=== PATIENT | male | born 1985 | race Caucasian/White ===

== ENCOUNTER 2020-04-17 16:48 | Emergency (ER) | payer OTHER ==
[~2020-04-17] VITALS: Ht 185 cm; Wt 99.7 kg
[2020-04-17] MEDS ORDERED: ONDANSETRON 4 MG/2 ML (SDV) Z0FRAN ONE (17:00)
[2020-04-17] MEDS ORDERED: LACTATED RINGERS 1,000 ML IV ONE ×2 (17:00→18:20)
[2020-04-17] MEDS ORDERED: HYOSCYAMINE 0.125 MG (LEVSIN) TAB ONE (17:01)
[2020-04-17] MEDS ORDERED: LACTATED RINGERS 1,000 ML IV STA (17:01)
[2020-04-17] MEDS ORDERED: HYOSCYAMINE 0.125 MG (LEVSIN) TAB SL ONE (17:15)
[2020-04-17] MEDS ORDERED: ONDANSETRON 4 MG/2 ML (SDV) Z0FRAN IVP ONE ×2 (17:15→20:15)
--- NOTE | 2020-04-17 17:19 | ED GI ---
General Chief Complaint: Abdominal/GI Problems Stated Complaint: STOMACH PAIN Nursing Triage Note: pt presents to ed with complaints of abdominal pain and cramping, v/d, and cold sweats since last night. Sepsis Screen: Possible Sepsis Risk Source of Information: Patient, Family Exam Limitations: No Limitations (MIRANDA TIDWELL MD) History of Present Illness Date Seen by Provider: Apr 17, 2020 Time Seen by Provider: 16:55 Initial Comments Here with report of abdominal pain and cramping associated with intermittent vomiting and diarrhea. Also has been diaphoretic. Has had low-grade fever in the 99 5-99 9 range. No specific contact with COVID-19. Onset after celebrating birthday green party yesterday and eating food. He ate the same food that everybody else had no one else is sick. Denies specific cough, sore throat, runny nose or shortness of breath. Timing/Duration: 12-24 Hours Severity/Quality: Moderate, Severe, Cramping Location: Generalized Abdomen Radiation: No Radiation Activities at Onset: None Modifying Factors: Improves With Defecating; Worsens With Eating Associated Symptoms: No Chest Pain; Diaphoresis, Fever/Chills, Fatigue, Nausea/Vomiting; No Shortness of Air, No Swelling/Mass in Abdomen; Weakness (MIRANDA TIDWELL MD) Allergies and Home Medications Allergies Coded Allergies: Penicillins (Verified Allergy, Unknown, 04/17/20) Home Medications Ciprofloxacin HCl 500 Mg Tablet, 500 MG PO BID Prescribed by: MEI MARTIN on 04/17/202009 Hyoscyamine Sulfate 0.125 Mg Tab.subl, 0.125 MG SL Q4H Prescribed by: MEI MARTIN on 04/17/202009 Metronidazole 500 Mg Tablet, 500 MG PO BID Prescribed by: MEI MARTIN on 04/17/202009 Ondansetron 4 Mg Tab.rapdis, 4 MG PO Q6H PRN for NAUSEA/VOMITING Prescribed by: MEI MARTIN on 04/17/202009 Patient Home Medication List Home Medication List Reviewed: Yes (MIRANDA TIDWELL MD) Review of Systems Review of Systems Constitutional: see HPI EENTM: No Symptoms Reported Respiratory: Denies Cough, Denies Shortness of Air Cardiovascular: No Symptoms Reported Gastrointestinal: See HPI Genitourinary: Denies Pain Musculoskeletal: no symptoms reported (MIRANDA TIDWELL MD) All Other Systems Reviewed Negative Unless Noted: Yes (MIRANDA TIDWELL MD) Past Oqdqmzi-Sipwlc-Ehsgbq Hx Past Med/Social Hx: Reviewed Nursing Past Med/Soc Hx (MIRANDA TIDWELL MD) Patient Social History Alcohol Use: Occasionally Uses Recreational Drug Use: No Smoking Status: Never a Smoker 2nd Hand Smoke Exposure: No Recent Foreign Travel: No Contact w/Someone Who Travel: No Recent Infectious Disease Expo: No Recent Hopitalizations: No (MIRANDA TIDWELL MD) Seasonal Allergies Seasonal Allergies: No (MIRANDA TIDWELL MD) Past Medical History Surgeries: Yes Appendectomy Respiratory: No Cardiac: No Neurological: No Genitourinary: No Gastrointestinal: No Musculoskeletal: No Endocrine: No HEENT: No Cancer: No Psychosocial: No Integumentary: No Adverse Reaction/Blood Tranf: No (MIRANDA TIDWELL MD) Family Medical History Reviewed Nursing Family Hx (MIRANDA TIDWELL MD) Physical Exam Vital Signs Vital Signs - First Documented 04/17/20 16:50 Temp 38.0 Pulse 96 Resp 20 B/P (MAP) 123/75 (91) Pulse Ox 96 (MARTIN,MEI L DO) Vital Signs Capillary Refill : Less Than 3 Seconds (MIRANDA TIDWELL MD) Height/Weight/BMI Height: '" Weight: lbs. oz. kg; 29.00 BMI Method: General Appearance: WD/WN, no apparent distress HEENT: PERRL/EOMI, pharynx normal Neck: full range of motion, supple Respiratory: lungs clear, normal breath sounds Cardiovascular: no murmur, tachycardia Peripheral Pulses: 2+ Dorsalis Pedis (R), 2+ Left Dors-Pedis (L), 2+ Radial Pulses (R), 2+ Radial Pulses (L) Gastrointestinal: soft, tenderness (diffuse) Extremities: non-tender, normal inspection Back: normal inspection, no CVA tenderness, no vertebral tenderness Neurologic/Psychiatric: alert, oriented x 3 Skin: normal color, warm/dry (MIRANDA TIDWELL MD) Progress/Results/Core Measures Results/Orders Lab Results Laboratory Tests Test 04/17/20 17:22 04/17/20 18:37 Range/Units White Blood Count 8.7 4.3-11.0 10^3/uL Red Blood Count 4.52 4.35-5.85 10^6/uL Hemoglobin 13.9 13.3-17.7 G/DL Hematocrit 39 L 40-54 % Mean Corpuscular Volume 87 80-99 FL Mean Corpuscular Hemoglobin 31 25-34 PG Mean Corpuscular Hemoglobin Concent 35 32-36 G/DL Red Cell Distribution Width 12.8 10.0-14.5 % Platelet Count 172 130-400 10^3/uL Mean Platelet Volume 10.8 H 7.4-10.4 FL Neutrophils (%) (Auto) 85 H 42-75 % Lymphocytes (%) (Auto) 10 L 12-44 % Monocytes (%) (Auto) 6 0-12 % Eosinophils (%) (Auto) 0 0-10 % Basophils (%) (Auto) 0 0-10 % Neutrophils # (Auto) 7.3 1.8-7.8 X 10^3 Lymphocytes # (Auto) 0.8 L 1.0-4.0 X 10^3 Monocytes # (Auto) 0.5 0.0-1.0 X 10^3 Eosinophils # (Auto) 0.0 0.0-0.3 10^3/uL Basophils # (Auto) 0.0 0.0-0.1 10^3/uL Erythrocyte Sedimentation Rate 17 H 0-15 MM/HR D-Dimer 1.49 H 0.00-0.49 UG/ML Sodium Level 135 135-145 MMOL/L Potassium Level 3.4 L 3.6-5.0 MMOL/L Chloride Level 101 98-107 MMOL/L Carbon Dioxide Level 23 21-32 MMOL/L Anion Gap 11 5-14 MMOL/L Blood Urea Nitrogen 17 7-18 MG/DL Creatinine 1.38 H 0.60-1.30 MG/DL Estimat Glomerular Filtration Rate 59 BUN/Creatinine Ratio 12 Glucose Level 119 H 70-105 MG/DL Calcium Level 8.8 8.5-10.1 MG/DL Corrected Calcium 8.7 8.5-10.1 MG/DL Magnesium Level 1.8 1.6-2.4 MG/DL Total Bilirubin 1.2 H 0.1-1.0 MG/DL Aspartate Amino Transf (AST/SGOT) 24 5-34 U/L Alanine Aminotransferase (ALT/SGPT) 27 0-55 U/L Alkaline Phosphatase 70 40-136 U/L Lactate Dehydrogenase 190 125-220 U/L C-Reactive Protein High Sensitivity 27.99 H 0.00-0.50 MG/DL Total Protein 7.1 6.4-8.2 GM/DL Albumin 4.1 3.2-4.5 GM/DL Procalcitonin 1.02 H <0.10 NG/ML Coronavirus 2019 (KENISHA) Negative Negative Urine Color YELLOW Urine Clarity CLEAR Urine pH 6.5 5-9 Urine Specific [place] 1.010 L 1.016-1.022 Urine Protein NEGATIVE NEGATIVE Urine Glucose (UA) NEGATIVE NEGATIVE Urine Ketones NEGATIVE NEGATIVE Urine Nitrite NEGATIVE NEGATIVE Urine Bilirubin NEGATIVE NEGATIVE Urine Urobilinogen 0.2 < = 1.0 MG/DL Urine Leukocyte Esterase NEGATIVE NEGATIVE Urine RBC (Auto) NEGATIVE NEGATIVE Urine RBC NONE /HPF Urine WBC NONE /HPF Urine Squamous Epithelial Cells NONE /HPF Urine Crystals NONE /LPF Urine Bacteria NEGATIVE /HPF Urine Casts PRESENT /LPF Urine Hyaline Casts 0-2 H /LPF Urine Mucus NEGATIVE /LPF Urine Culture Indicated NO (MEI MARTIN DO) My Orders Orders - MEI MARTIN DO Ed Iv/Invasive Line Start (04/17/20 18:20) Lactated Ringers (Lr 1000 Ml Iv Solution (04/17/20 18:20) Fentanyl Injection (Sublimaze Injection (04/17/20 18:25) Promethazine Injection (Phenergan Injec (04/17/20 18:25) Ct Abdomen/Pelvis W (04/17/20 18:47) Iohexol Injection (Omnipaque 350 Mg/Ml 1 (04/17/20 19:30) Received Contrast (Hold Metformin- Contr (04/17/20 19:30) Sodium Chloride Flush (Catheter Flush Sy (04/17/20 19:30) Ns (Ivpb) (Sodium Chloride 0.9% Ivpb Bag (04/17/20 19:30) Levofloxacin Tablet (Levaquin Tablet) (04/17/20 19:46) Metronidazole Tablet (Flagyl Tablet) (04/17/20 19:46) Ondansetron Injection (Zofran Injectio (04/17/20 20:15) (MEI MARTIN DO) Medications Given in ED Current Medications Medications Dose Ordered Sig/Sadia Route Start Time Stop Time Status Last Admin Dose Admin Hyoscyamine Sulfate 0.125 mg ONCE ONCE SL 04/17/20 17:15 04/17/20 17:16 DC 04/17/20 17:18 0.125 MG Iohexol 100 ml ONCE ONCE IV 04/17/20 19:30 04/17/20 19:31 UNV 04/17/20 19:22 100 ML Lactated Ringer's 1,000 ml @ 0 mls/hr Q0M ONCE IV 04/17/20 18:20 04/17/20 18:22 DC 04/17/20 18:32 0 MLS/HR Ondansetron HCl 4 mg ONCE ONCE IVP 04/17/20 17:15 04/17/20 17:16 DC 04/17/20 17:18 4 MG Sodium Chloride 10 ml NEEDED PRN IV 04/17/20 19:30 UNV 04/17/20 19:22 10 ML Sodium Chloride 100 ml ONCE ONCE IV 04/17/20 19:30 04/17/20 19:31 UNV 04/17/20 19:22 80 ML (MEI MARTIN DO) Vital Signs/I&O 04/17/20 16:50 Temp 38.0 Pulse 96 Resp 20 B/P (MAP) 123/75 (91) Pulse Ox 96 (MEI MARTIN DO) Blood Pressure Mean: 91 Progress Progress Note : Progress Note Seen and evaluated. IV, labs, LR 1 L bolus, Zofran 4 mg IV and Levsin 0.125 mg by mouth sublingual. Due to presenting symptoms and current pandemic, COVID-19 rapid test ordered. Monitor patient. (MIRANDA TIDWELL MD) Progress Note : Time: 20:04 Progress Note I assumed care from Dr. Tidwell. Patient was given an additional 1 L bolus of LR. CT of abdomen was obtained that showed a colitis/enteritis. I will start him on Cipro Flagyl. He will also be discharged with Levsin and Zofran. Patient is stable and will be discharged home. (MEI MARTIN DO) Diagnostic Imaging Diagonstic Imaging: CT Plain Films/CT/US/NM/MRI: abdomen Comments [facility]. [place], [place] NAME: JULI STOKESPORTIA Atkinson [facility] REC#: [id number] PT STATUS: REG ER : 1985 PHYSICIAN: MEI MARTIN DO ADMIT DATE: 04/17/20/ER Signed Date of Exam:04/17/20 CT ABDOMEN/PELVIS W INDICATION: Abdominal pain and cramping, vomiting and diarrhea. Cold sweats since last night. Prior appendectomy. EXAMINATION: CT abdomen and pelvis with contrast, 04/17/2020. All CT scans use one or more of the following dose optimizing techniques: automated exposure control, MA and/or KvP adjustment based on patient size and exam type or iterative reconstruction. COMPARISON: None. FINDINGS: Lung bases are clear. Liver demonstrates a few calcified granulomata but otherwise normal. Calcified granulomata noted within the spleen. The adrenal glands and pancreas are normal. Gallbladder is unremarkable. Kidneys are unremarkable. Diffuse abnormal appearance to the large bowel is noted with wall thickening involving the entire colon and mild adjacent fat stranding also present. No obstructive process. No free fluid or air. A few small bowel loops within the midabdomen also abnormal in appearance suggesting an enteritis. The osseous structures appear unremarkable. IMPRESSION: Abnormal appearing loops of bowel, especially involving the colon, suggesting colitis and likely enteritis. Remaining structures unremarkable. (MEI MARTIN DO) Departure Impression Primary Impression: Colitis Additional Impression: Enteritis Disposition: 01 HOME, SELF-CARE Condition: Stable Departure-Patient Inst. Patient Instructions: Colitis (DC), [id number] Scripts Ondansetron (Ondansetron Odt) 4 Mg Tab.rapdis 4 MG PO Q6H PRN for NAUSEA/VOMITING, #20 TAB 0 Refills Prov: MEI MARTIN DO 04/17/20 Metronidazole (Flagyl) 500 Mg Tablet 500 MG PO BID, #14 TAB Prov: MEI MARTIN DO 04/17/20 Hyoscyamine Sulfate (Levsin-Sl) 0.125 Mg Tab.subl 0.125 MG SL Q4H, #10 TAB 0 Refills Prov: MEI MARTIN DO 04/17/20 Ciprofloxacin HCl (Ciprofloxacin HCl) 500 Mg Tablet 500 MG PO BID, #14 TAB Prov: MEI MARTIN DO 04/17/20 MIRANDA TIDWELL MD Apr 17, 2020 17:18 MEI MARTIN DO Apr 17, 2020 20:09
[2020-04-17 17:44] LABS: BASOPHILS % (AUTO) 0 % (0-10); EOSINOPHILS % (AUTO) 0 % (0-10); HEMATOCRIT 39 % (40-54); HEMOGLOBIN 13.9 G/DL (13.3-17.7); LYMPHOCYTES # (AUTO) 0.8 X 10^3 (1.0-4.0); LYMPHOCYTES % (AUTO) 10 % (12-44); MEAN CORPUSCULAR HEMOGLOBIN 31 PG (25-34); MEAN CORPUSCULAR HGB CONC 35 G/DL (32-36); MEAN CORPUSCULAR VOLUME 87 FL (80-99); MEAN PLATELET VOLUME 10.8 FL (7.4-10.4); MONOCYTES # (AUTO) 0.5 X 10^3 (0.0-1.0); MONOCYTES % (AUTO) 6 % (0-12); NEUTROPHILS # (AUTO) 7.3 X 10^3 (1.8-7.8); NEUTROPHILS % (AUTO) 85 % (42-75); PLATELET COUNT 172 10^3/uL (130-400); WHITE BLOOD COUNT 8.7 10^3/uL (4.3-11.0)
[2020-04-17 17:54] LABS: ALBUMIN 4.1 GM/DL (3.2-4.5); POTASSIUM 3.4 MMOL/L (3.6-5.0)
[2020-04-17 17:55] LABS: CALCIUM 8.8 MG/DL (8.5-10.1)
[2020-04-17 17:57] LABS: TOTAL PROTEIN 7.1 GM/DL (6.4-8.2)
[2020-04-17 17:58] LABS: BILIRUBIN,TOTAL 1.2 MG/DL (0.1-1.0)
[2020-04-17 18:00] LABS: CREATININE SERUM 1.38 MG/DL (0.60-1.30)
[2020-04-17 18:03] LABS: MAGNESIUM 1.8 MG/DL (1.6-2.4)
[2020-04-17] MEDS ORDERED: PROMETHAZINE INJ 25 MG/ML (PHENERGAN) AMP IVP STA (18:25)
[2020-04-17] MEDS ORDERED: fentaNYL INJECTION 100 MCG/2 ML AMP IVP STA (18:25)
[2020-04-17 18:43] LABS: ERYTHROCYTE SEDIMENTATION RATE 17 MM/HR (0-15)
[2020-04-17 18:51] LABS: BILIRUBIN,URINE NEGATIVE (NEGATIVE); CLARITY,URINE CLEAR; COLOR,URINE YELLOW; GLUCOSE, URINE (UA) NEGATIVE (NEGATIVE); KETONES,URINE NEGATIVE (NEGATIVE); LEUKOCYTE ESTERASE ,URINE NEGATIVE (NEGATIVE); NITRITE,URINE NEGATIVE (NEGATIVE); PH,URINE 6.5 (5-9); PROTEIN,URINE NEGATIVE (NEGATIVE)
[2020-04-17 18:58] LABS: BACTERIA,URINE NEGATIVE /HPF; HYALINE CASTS, URINE 0-2 /LPF
[2020-04-17] MEDS ORDERED: IOHEXOL 350 MG/ML 100 ML (OMNIPAQUE 350) VIAL IV ONE (19:30)
[2020-04-17] MEDS ORDERED: HOLD METFORMIN - RECEIVED CONTRAST 20 ML VIAL IV SCH (19:30)
[2020-04-17] MEDS ORDERED: NS 100 ML (IVPB) BAG IV ONE (19:30)
[2020-04-17] MEDS ORDERED: CATHETER FLUSH 10 ML SYR IV PRN (19:30)
--- NOTE | 2020-04-17 19:35 | Diagnostic Imaging Report ---
INDICATION: Abdominal pain and cramping, vomiting and diarrhea. Cold sweats since last night. Prior appendectomy. EXAMINATION: CT abdomen and pelvis with contrast, 04/17/2020. All CT scans use one or more of the following dose optimizing techniques: automated exposure control, MA and/or KvP adjustment based on patient size and exam type or iterative reconstruction. COMPARISON: None. FINDINGS: Lung bases are clear. Liver demonstrates a few calcified granulomata but otherwise normal. Calcified granulomata noted within the spleen. The adrenal glands and pancreas are normal. Gallbladder is unremarkable. Kidneys are unremarkable. Diffuse abnormal appearance to the large bowel is noted with wall thickening involving the entire colon and mild adjacent fat stranding also present. No obstructive process. No free fluid or air. A few small bowel loops within the midabdomen also abnormal in appearance suggesting an enteritis. The osseous structures appear unremarkable. IMPRESSION: Abnormal appearing loops of bowel, especially involving the colon, suggesting colitis and likely enteritis. Remaining structures unremarkable. Dictated by: Dictated on workstation # [id number]
[2020-04-17] MEDS ORDERED: metroNIDAZOLE 500 MG (FLAGYL) TAB PO STA (19:46)
[2020-04-17] MEDS ORDERED: LEVOFLOXACIN 500 MG TAB (LEVAQUIN) PO STA (19:46)
[2020-04-17] MEDS ORDERED: METR500T PO ×2 (20:10→20:18)
[2020-04-17] MEDS ORDERED: CIPR500T4 PO ×2 (20:10→20:18)
[2020-04-17] MEDS ORDERED: ONDA4TAB11 PO ×2 (20:10→20:18)
[2020-04-17] MEDS ORDERED: HYOS0.1283 SL ×2 (20:10→20:18)
[2020-04-17] MEDS ORDERED: fentaNYL INJECTION 100 MCG/2 ML AMP IVP ONE (20:30)
[2020-04-17 20:33] VITALS: BP 123/75
== END 2020-04-17 20:33 | disposition home or self-care (01) ==
LOC: EDUNIT# 16:48 → ER 16:51
DX: K52.9 Noninfective gastroenteritis and colitis, unspecified (principal); Z88.0 Allergy status to penicillin; Z20.828 Contact with and (suspected) exposure to other viral communicable diseases
CPT/HCPCS: 74177; 80053; 81000; 83615; 83735; 84145; 85025; 85379; 85652; 86141; 99284; U0002; 36415; 87635

== ENCOUNTER → 2020-06-15 | Outpatient (CLI) | payer OTHER ==
[~2020-06-15] MED LIST: CIPR500T4 PO; HYOS0.1283 SL; METR500T PO; ONDA4TAB11 PO
== END ==
LOC: LABNPT 09:12
PROVIDERS: ATTEND Emergency Medicine
DX: J02.9 Acute pharyngitis, unspecified (principal); R51.9 Headache, unspecified

== ENCOUNTER → 2020-06-15 | Outpatient (CLI) | payer OTHER | LOC: LAB 09:00 | PROVIDERS: ATTEND Emergency Medicine | DX: J02.9 Acute pharyngitis, unspecified (principal); R51.9 Headache, unspecified; Z20.828 Contact with and (suspected) exposure to other viral communicable diseases | CPT/HCPCS: 87635 ==

== ENCOUNTER 2020-06-24 05:41 | Outpatient (RCR) | payer OTHER ==
[~2020-06-24 05:41] MED LIST changes: +ATOR10TA66 PO
== END 2020-06-24 14:43 | disposition home or self-care (01) ==
LOC: PREOP 05:41
PROVIDERS: ATTEND Surgery
DX: Z01.812 Encounter for preprocedural laboratory examination (principal); K92.1 Melena; Z87.19 Personal history of other diseases of the digestive system; Z20.828 Contact with and (suspected) exposure to other viral communicable diseases
CPT/HCPCS: 87635

== ENCOUNTER 2020-06-28 09:58 | Day surgery (SDC) | payer OTHER ==
[2020-06-28] VITALS (7 sets, daily range): BP systolic 107–122; BP diastolic 67–85
[~2020-06-28] VITALS: Ht 185.5 cm; Wt 91.0 kg
[2020-06-28] MEDS ORDERED: LACTATED RINGERS 1,000 ML IV STA (10:25)
[2020-06-28] MEDS ORDERED: LACTATED RINGERS 1,000 ML IV ONE (10:27)
--- NOTE | 2020-06-28 11:20 | Progress Note-Pre Operative ---
Pre-Operative Progress Note H&P Reviewed The H&P was reviewed, patient examined and no changes noted. Date Seen by Provider: Jun 28, 2020 Time Seen by Provider: 11:19 Date H&P Reviewed: Jun 28, 2020 Time H&P Reviewed: 11:19 Pre-Operative Diagnosis: blood in stools, abnormal ct ELIAS DISLA DO Jun 28, 2020 11:20
[2020-06-28] MEDS ORDERED: proPOfol 200 MG/20 ML (DIPRIVAN) VIAL IV ONE ×2 (11:22→11:58)
[2020-06-28] MEDS ORDERED: MIDAZOLAM 2 MG/2 ML (VERSED) VIAL ONE (11:23)
--- NOTE | 2020-06-28 12:03 | Progress Note-Post Operative ---
Post-Operative Progess Note Surgeon (s)/Information Assurance (s) Surgeon ELIAS DISLA DO Information Assurance: na Pre-Operative Diagnosis blood in stools, abnormal ct Post-Operative Diagnosis rectal polyp, rectal inflammation, slight mucosal change ileum Procedure & Operative Findings Date of Procedure 06/28/20 Procedure Performed/Findings colonoscopy c cold biopsy ileum and rectal inflammation, cold polypectomy rectum Anesthesia Type per dairy farm manager Estimated Blood Loss Estimated blood loss (mL): none Specimens/Packing Specimens Removed ileum, rectal polyp, rectal inflammation ELIAS DISLA DO Jun 28, 2020 12:03
--- NOTE | 2020-06-28 13:14 | Anesthesia-General Post-Op ---
MAC Patient Condition Mental Status/LOC: Same as Preop Cardiovascular: Satisfactory Nausea/Vomiting: Absent Respiratory: Satisfactory Pain: Controlled Complications: Absent Post Op Complications Complications None Follow Up Care/Instructions Patient Instructions None needed. Anesthesiology Discharge Order Discharge Order Patient is doing well, no complaints, stable vital signs, no apparent adverse anesthesia problems. No complications reported per nursing. CARMEN SAENZ CRNA Jun 28, 2020 13:14
--- NOTE | 2020-06-29 14:14 | OPERATIVE REPORT ---
DATE OF SERVICE: 06/28/2020 PREOPERATIVE DIAGNOSES: Blood in stool, abnormal CT scan. POSTOPERATIVE DIAGNOSES: Rectal polyp, rectal inflammation, slight mucosal change of the ileum. SURGEON: Elias Covarrubias DO ANESTHESIA: Per FRANCHISE MANAGER. PROCEDURE: Colonoscopy with cold biopsy of the ileum, cold polypectomy of the rectum and cold biopsy of the rectum. ESTIMATED BLOOD LOSS: None. COMPLICATIONS: None. INDICATIONS: The patient is a 34-year-old male with some blood in the stools. He also had a CT scan that was abnormal and consistent with colitis. He understands risks and benefits of procedure and wished to proceed with procedure. Consent was signed in the chart. DESCRIPTION OF PROCEDURE: The patient was taken to the endoscopy suite, placed in left lateral recumbent position. Timeout was performed. Digital rectal exam was performed. There were no palpable polyps, masses or ulcerations. Scope was inserted in the rectum and advanced all the way to cecum with minimal difficulty. Prep was adequate. The ileocecal valve was intubated, and ileum had some slight mucosal changes for which cold biopsy was obtained. Scope was then slowly retracted back into the colon. There were no polyps, masses or ulcerations in the cecum, ascending, transverse, descending and sigmoid colon. Once in the rectum, a very small polyp was present, which cold polypectomy was performed. Scope was retroflexed noting no other pathology. In the rectum, there was also some slight inflammatory changes. Cold biopsies were obtained. Scope was then slowly retracted back until completely removed. The patient tolerated procedure well without any complications and was taken to recovery room in stable condition. RECOMMENDATIONS: The patient will follow up in the office and discuss biopsy results. If any return of his symptoms, he should be reevaluated at that time. Job ID: [id number] DocumentID: [id number] Dictated Date: 06/29/2020 10:35:19 Electronic Technician Date: 06/29/2020 14:13:44 Dictated By: ELIAS COVARRUBIAS DO
== END 2020-06-28 12:42 | disposition home or self-care (01) ==
LOC: ENDO 09:58
PROVIDERS: ATTEND Surgery
DX: K92.1 Melena (principal); K62.1 Rectal polyp; E66.9 Obesity, unspecified; Z68.26 Body mass index [BMI] 26.0-26.9, adult; Z79.899 Other long term (current) drug therapy; Z88.0 Allergy status to penicillin; Z80.9 Family history of malignant neoplasm, unspecified; Z83.3 Family history of diabetes mellitus; Z82.49 Family history of ischemic heart disease and other diseases of the circulatory system

== ENCOUNTER → 2020-07-25 | Outpatient (CLI) | payer OTHER | LOC: LAB 19:38 | PROVIDERS: ATTEND Emergency Medicine | DX: Z01.812 Encounter for preprocedural laboratory examination (principal); Z20.828 Contact with and (suspected) exposure to other viral communicable diseases | CPT/HCPCS: 87635 ==

== ENCOUNTER 2020-07-26 10:25 | Outpatient (CLI) | payer OTHER ==
[~2020-07-26] VITALS: Ht 185.5 cm; Wt 98.2 kg
== END 2020-07-26 12:17 | disposition home or self-care (01) ==
LOC: PREOP 10:25
PROVIDERS: ATTEND Surgery

== ENCOUNTER 2020-07-27 10:28 | Day surgery (SDC) | payer OTHER ==
[~2020-07-27] VITALS: Ht 185.5 cm; Wt 98.2 kg
[2020-07-27] VITALS (10 sets, daily range): BP systolic 110–139; BP diastolic 60–87
[2020-07-27] MEDS ORDERED: LACTATED RINGERS 1,000 ML IV STA (10:33)
[2020-07-27] MEDS ORDERED: LACTATED RINGERS 1,000 ML IV ONE (10:35)
[2020-07-27] MEDS ORDERED: PROPOFOL INJECTION 50 ML IV ONE ×2 (11:30→11:43)
[2020-07-27] MEDS ORDERED: MIDAZOLAM 5 MG/5 ML (VERSED) VIAL ONE (11:31)
--- NOTE | 2020-07-27 12:12 | Discharge Inst-Simple/Standard ---
Discharge Inst-Standard Patient Instructions/Follow Up Plan of Care/Instructions/FU: 2 weeks Satish Activity as Tolerated: Yes Discharge Diet: Regular Diet ELIAS DISLA DO Jul 27, 2020 12:12
--- NOTE | 2020-07-27 13:37 | Anesthesia-General Post-Op ---
MAC Patient Condition Mental Status/LOC: Same as Preop Cardiovascular: Satisfactory Nausea/Vomiting: Absent Respiratory: Satisfactory Pain: Controlled Complications: Absent Post Op Complications Complications None Follow Up Care/Instructions Patient Instructions None needed. Anesthesiology Discharge Order Discharge Order Patient is doing well, no complaints, stable vital signs, no apparent adverse anesthesia problems. No complications reported per nursing. LU ANGELES CRNA Jul 27, 2020 13:37
--- NOTE | 2020-07-27 21:47 | OPERATIVE REPORT ---
DATE OF SERVICE: 07/27/2020 PREOPERATIVE DIAGNOSIS: Recurrent bright red blood per rectum. POSTOPERATIVE DIAGNOSES: Internal hemorrhoid, rectal inflammation and ileal mucosal change. PROCEDURE: Colonoscopy with cold biopsies of the ileum and cold biopsy of the rectum. SURGEON: Elias Covarrubias DO ANESTHESIA: Per AWNING INSTALLER. ESTIMATED BLOOD LOSS: None. COMPLICATIONS: None. INDICATIONS: The patient is a 34-year-old male, who has had significant bleeding event. He understands risks and benefits of procedure and for reevaluation. He understands and wishes to proceed. Consent was signed in the chart. DESCRIPTION OF PROCEDURE: The patient was taken to the endoscopy suite, placed in left lateral recumbent position. Timeout was performed. Digital rectal exam was performed. There were no palpable polyps, masses or ulcerations. Scope was inserted in the rectum, noting the rectal inflammation. Scope was then advanced all the way to cecum with minimal difficulty. Prep was adequate. The ileocecal valve was intubated noting some slight mucosal changes of the distal ileum. Cold biopsies were obtained. Scope was then slowly retracted back. There were no polyps, masses or ulcerations within the cecum, ascending, transverse, descending colon. No polyps, masses or ulcerations in the sigmoid colon. Once in the rectum, noting the inflammatory changes in the rectum. Multiple cold biopsies were obtained. Scope was retroflexed noting a small internal hemorrhoid. No other pathology. Scope was returned to its normal position, slowly withdrawn until completely removed. The patient tolerated procedure well without any complications and taken to recovery room in stable condition. RECOMMENDATIONS: The patient will follow up on biopsies in 2 weeks. If any issues before that be seen at that time. If continues to have bleeding, would consider capsule endoscopy. Job ID: [id number] DocumentID: [id number] Dictated Date: 07/27/2020 16:12:15 Performance Improvement Analyst Date: 07/27/2020 21:47:18 Dictated By: ELIAS COVARRUBIAS DO
== END 2020-07-27 13:22 | disposition home or self-care (01) ==
LOC: ENDO 10:28
PROVIDERS: ATTEND Surgery
DX: K64.8 Other hemorrhoids (principal); K62.5 Hemorrhage of anus and rectum; E78.5 Hyperlipidemia, unspecified; Z79.899 Other long term (current) drug therapy; Z88.0 Allergy status to penicillin; Z80.9 Family history of malignant neoplasm, unspecified; Z82.49 Family history of ischemic heart disease and other diseases of the circulatory system

== ENCOUNTER 2021-11-26 19:30 | Emergency (ER) | payer OTHER ==
[~2021-11-26] VITALS: Ht 180 cm; Wt 81.0 kg
[~2021-11-26 19:30] MED LIST changes: -CIPR500T4 PO; +CIPR500T5 PO
--- NOTE | 2021-11-26 19:48 | ED Abdominal Pain ---
General Chief Complaint: Abdominal/GI Problems Stated Complaint: ABD PAIN History of Present Illness Date Seen by Provider: Nov 26, 2021 Time Seen by Provider: 19:38 Initial Comments 36-year-old male presents for abdominal distention, periods of severe abdominal pain, and mild nausea. He reports his pain to be a 2/10 at present time but at times it goes to 8/10. He was given Levsin and Zofran prior to arrival which has helped with his symptoms. He last ate at 1800. He has been drinking water and active today. He had a previous appendectomy with subsequent SBO that required surgery for adhesions. Timing/Duration: 1-3 Hours (SHAUNA MANN) Allergies and Home Medications Allergies Coded Allergies: Penicillins (Verified Allergy, Unknown, 04/17/20) Patient Home Medication List Home Medication List Reviewed: Yes (SHAUNA MANN) Atorvastatin Calcium (Atorvastatin Calcium) 10 Mg Tablet, 10 MG PO HS, (Reported) Entered as Reported by: JENNA SERRANO on 06/21/20 1236 Review of Systems Review of Systems Constitutional: no symptoms reported, see HPI Gastrointestinal: See HPI, Abdomen Distended, Abdominal Pain; Denies Diarrhea, Denies Nausea, Denies Poor Appetite, Denies Poor Fluid Intake, Denies Rectal Bleeding, Denies Vomiting (SHAUNA MANN) All Other Systems Reviewed Negative Unless Noted: Yes (SHAUNA MANN) Past Jdumbeh-Qopofn-Ewujtl Hx Immunizations Up To Date Tetanus Booster (TDap): More than 5yrs (SHAUNA MANN) Seasonal Allergies Seasonal Allergies: No (SHAUNA MANN) Past Medical History Surgeries: Yes Appendectomy Respiratory: No Cardiac: No Neurological: No Genitourinary: No Gastrointestinal: No Musculoskeletal: No Endocrine: No HEENT: No Cancer: No Psychosocial: No Integumentary: No Blood Disorders: No Adverse Reaction/Blood Tranf: No (SHAUNA MANN) Family Medical History Reviewed Nursing Family Hx (SHAUNA MANN) Physical Exam Vital Signs Vital Signs - First Documented 11/26/21 19:45 Temp 37.0 Pulse 82 Resp 20 B/P (MAP) 128/76 (93) Pulse Ox 97 O2 Delivery Room Air (JONO,LYNDSEY K DO) Vital Signs Capillary Refill : (SHAUNA MANN) Height/Weight/BMI Height: '" Weight: lbs. oz. kg; 28.53 BMI Method: General Appearance: WD/WN, no apparent distress Respiratory: chest non-tender, lungs clear, normal breath sounds Cardiovascular: normal peripheral pulses, regular rate, rhythm Gastrointestinal: abnormal bowel sounds (hypo), distended, tenderness (minmal, suprapubic); No hernia, No mass Neurologic/Psychiatric: no motor/sensory deficits, alert, normal mood/affect, oriented x 3 Skin: normal color, warm/dry (MACKENZIE,SHAUNA [employer]GER) Progress/Results/Core Measures Results/Orders Lab Results Laboratory Tests Test 11/26/21 19:40 Range/Units White Blood Count 5.7 4.3-11.0 10^3/uL Red Blood Count 4.67 4.30-5.52 10^6/uL Hemoglobin 14.1 13.3-17.7 g/dL Hematocrit 41 40-54 % Mean Corpuscular Volume 89 80-99 fL Mean Corpuscular Hemoglobin 30 25-34 pg Mean Corpuscular Hemoglobin Concent 34 32-36 g/dL Red Cell Distribution Width 12.3 10.0-14.5 % Platelet Count 219 130-400 10^3/uL Mean Platelet Volume 10.7 9.0-12.2 fL Immature Granulocyte % (Auto) 0 % Neutrophils (%) (Auto) 61 42-75 % Lymphocytes (%) (Auto) 27 12-44 % Monocytes (%) (Auto) 8 0-12 % Eosinophils (%) (Auto) 3 0-10 % Basophils (%) (Auto) 1 0-10 % Neutrophils # (Auto) 3.5 1.8-7.8 10^3/uL Lymphocytes # (Auto) 1.5 1.0-4.0 10^3/uL Monocytes # (Auto) 0.5 0.0-1.0 10^3/uL Eosinophils # (Auto) 0.2 0.0-0.3 10^3/uL Basophils # (Auto) 0.1 0.0-0.1 10^3/uL Immature Granulocyte # (Auto) 0.0 0.0-0.1 10^3/uL Sodium Level 141 135-145 MMOL/L Potassium Level 3.7 3.6-5.0 MMOL/L Chloride Level 103 98-107 MMOL/L Carbon Dioxide Level 24 21-32 MMOL/L Anion Gap 14 5-14 MMOL/L Blood Urea Nitrogen 15 7-18 MG/DL Creatinine 1.06 0.60-1.30 MG/DL Estimat Glomerular Filtration Rate 93 BUN/Creatinine Ratio 14 Glucose Level 101 70-105 MG/DL Calcium Level 9.7 8.5-10.1 MG/DL Corrected Calcium 8.5-10.1 MG/DL Total Bilirubin 0.3 0.1-1.0 MG/DL Aspartate Amino Transf (AST/SGOT) 40 H 5-34 U/L Alanine Aminotransferase (ALT/SGPT) 74 H 0-55 U/L Alkaline Phosphatase 73 40-136 U/L C-Reactive Protein High Sensitivity 0.03 0.00-0.50 MG/DL Total Protein 7.3 6.4-8.2 GM/DL Albumin 4.7 H 3.2-4.5 GM/DL (JONO,LYNDSEY K DO) Vital Signs/I&O 11/26/21 19:45 Temp 37.0 Pulse 82 Resp 20 B/P (MAP) 128/76 (93) Pulse Ox 97 O2 Delivery Room Air (JONO,LYNDSEY K DO) Progress Progress Note : Time: 19:38 Progress Note Patient seen and evaluated, will obtain labs and CT of the abdomen pelvis with contrast. Patient denies need for medication at this time. [address] Disla by phone, reviewed CT with him. Slight concern with the mesenteric swelling but no obvious internal hernia or small bowel obstruction. Discussed results with patient appears pain is from constipation. Will us suppository and mag citrate. Discharge instructions and return precautions reviewed with the patient. All questions answered. (SHAUNA MANN) Diagnostic Imaging Diagonstic Imaging: CT Plain Films/CT/US/NM/MRI: abdomen, pelvis Comments NAME: JARETH STOKES [facility] REC#: [id number] PT STATUS: REG ER : 1985 PHYSICIAN: SHAUNA MANN ADMIT DATE: 11/26/21/ER Signed Date of Exam:11/26/21 CT ABDOMEN/PELVIS WO PROCEDURE: CT abdomen and pelvis without contrast. TECHNIQUE: Multiple contiguous axial images were obtained through the abdomen and pelvis without the use of intravenous contrast. Auto Exposure Controls were utilized during the CT exam to meet ALARA standards for radiation dose reduction. DATE: November 26, 2021. COMPARISON: CT abdomen and pelvis April 17, 2020. INDICATION: 36-year-old male, lower abdominal pain. FINDINGS: There are limitations for evaluation of the abdominal organs, neoplastic processes, abscess, and limited evaluation of the vasculature relating to the lack of intravenous contrast. There is a 2 mm noncalcified nodule in the lingula. This is unchanged since April 2020. The heart is not enlarged. There is no pericardial effusion. The liver is normal in size and contour. The gallbladder is unremarkable. There is no intrahepatic or extrahepatic bile duct dilation. The main pancreatic duct is not abnormally dilated. Limited noncontrast assessment of the pancreatic parenchyma is unremarkable. The spleen is not enlarged. The adrenal glands are unremarkable. Limited noncontrast evaluation of the renal parenchyma is unremarkable. The urinary collecting systems are not distended. There is no identified renal or ureteral stone. The urinary bladder is unremarkable. The intestinal tract is not distended. There are sutures in the region of the cecum which may reflect appendectomy. The appendix is not well seen. There is no secondary finding to suggest acute appendicitis. There is swirling of the mesenteric vasculature. There is no abnormal distention of the intestinal tract. There is no identified abnormal bowel wall thickening, pneumatosis or portal venous gas. There is no free intraperineal air. There is no drainable fluid collection. There is no free pelvic fluid. There is no identified abnormally enlarged lymph node in the abdomen or pelvis meeting CT size criteria for adenopathy. There is no identified acute bony abnormality. IMPRESSION: CT abdomen and pelvis: 1. No identified acute abnormality in the abdomen or pelvis. 2. There is swirling of the mesenteric vasculature, which is also present on prior CT on April 17, 2020. There is no evidence of intestinal obstruction or volvulus. No evidence of enteritis or colitis. Dictated by: Dictated on workstation # [id number] Dict: 11/26/212016 Trans: 11/26/212026 PJE [id number] Interpreted by: BALBINA VALLADARES MD Electronically signed by: BALBINA VALLADARES MD 11/26/212026 Reviewed: Reviewed by Me, Reviewed/Discussed (with Dr. Disla regarding the messenteric swirling) (SHAUNA MANN) Departure Impression Primary Impression: Abdominal pain Qualified Codes: R10.84 - Generalized abdominal pain Additional Impressions: Abdominal distension Constipation Qualified Codes: K59.00 - Constipation, unspecified Disposition: 01 HOME, SELF-CARE Condition: Improved Departure-Patient Inst. Decision time for Depature: 20:45 (SHAUNA MANN) Referrals: WALDO CORTEZ MD (PCP/Family) Primary Care Physician Patient Instructions: Constipation, Adult (DC), Severe Abdominal Pain, Adult (DC) Add. Discharge Instructions: Clear liquid diet for the remainder of tonight. Increase water intake 16 ounces every hour while awake. Between the Mag Citrate and Suppository, you should pass 2-4 large stools. Use Tucks Pads/Preparation H for hemorrhoids. Call Dr. Disla, if pain worsens. Activity as tolerated, bland diet tomorrow, then progress to regular diet, as tolerated. Follow up with Dr. Cortez and/or Dr. Disla, as needed. Return to Emergency Dept for new, urgent healthcare needs. All discharge instructions reviewed with patient and/or family. Voiced understanding. ATTENDING PHYSICIAN NOTE: I WAS PHYSICALLY PRESENT ER PHYSICIAN, BUT I WAS NOT INVOLVED IN ANY DECISION MAKING OR ANY CARE OF THIS PATIENT. (LYNDSEY DE LA CRUZ DO) Copy Copies To 1: WALDO CORTEZ MD Copies To 2: ELIAS DISLA AMY ARNP Nov 26, 2021 19:48 LYNDSEY DE LA CRUZ DO Nov 27, 2021 02:05
[2021-11-26 20:10] LABS: BASOPHILS # (AUTO) 0.1 10^3/uL (0.0-0.1); BASOPHILS % (AUTO) 1 % (0-10); EOSINOPHILS # (AUTO) 0.2 10^3/uL (0.0-0.3); EOSINOPHILS % (AUTO) 3 % (0-10); HEMATOCRIT 41 % (40-54); HEMOGLOBIN 14.1 g/dL (13.3-17.7); LYMPHOCYTES # (AUTO) 1.5 10^3/uL (1.0-4.0); LYMPHOCYTES % (AUTO) 27 % (12-44); MEAN CORPUSCULAR HEMOGLOBIN 30 pg (25-34); MEAN CORPUSCULAR HGB CONC 34 g/dL (32-36); MEAN CORPUSCULAR VOLUME 89 fL (80-99); MEAN PLATELET VOLUME 10.7 fL (9.0-12.2); MONOCYTES # (AUTO) 0.5 10^3/uL (0.0-1.0); MONOCYTES % (AUTO) 8 % (0-12); NEUTROPHILS # (AUTO) 3.5 10^3/uL (1.8-7.8); NEUTROPHILS % (AUTO) 61 % (42-75); PLATELET COUNT 219 10^3/uL (130-400); WHITE BLOOD COUNT 5.7 10^3/uL (4.3-11.0)
[2021-11-26 20:27] LABS: ALBUMIN 4.7 GM/DL (3.2-4.5); CHLORIDE 103 MMOL/L (98-107); POTASSIUM 3.7 MMOL/L (3.6-5.0); SODIUM 141 MMOL/L (135-145)
--- NOTE | 2021-11-26 20:27 | Diagnostic Imaging Report ---
PROCEDURE: CT abdomen and pelvis without contrast. TECHNIQUE: Multiple contiguous axial images were obtained through the abdomen and pelvis without the use of intravenous contrast. Auto Exposure Controls were utilized during the CT exam to meet ALARA standards for radiation dose reduction. DATE: November 26, 2021. COMPARISON: CT abdomen and pelvis April 17, 2020. INDICATION: 36-year-old male, lower abdominal pain. FINDINGS: There are limitations for evaluation of the abdominal organs, neoplastic processes, abscess, and limited evaluation of the vasculature relating to the lack of intravenous contrast. There is a 2 mm noncalcified nodule in the lingula. This is unchanged since April 2020. The heart is not enlarged. There is no pericardial effusion. The liver is normal in size and contour. The gallbladder is unremarkable. There is no intrahepatic or extrahepatic bile duct dilation. The main pancreatic duct is not abnormally dilated. Limited noncontrast assessment of the pancreatic parenchyma is unremarkable. The spleen is not enlarged. The adrenal glands are unremarkable. Limited noncontrast evaluation of the renal parenchyma is unremarkable. The urinary collecting systems are not distended. There is no identified renal or ureteral stone. The urinary bladder is unremarkable. The intestinal tract is not distended. There are sutures in the region of the cecum which may reflect appendectomy. The appendix is not well seen. There is no secondary finding to suggest acute appendicitis. There is swirling of the mesenteric vasculature. There is no abnormal distention of the intestinal tract. There is no identified abnormal bowel wall thickening, pneumatosis or portal venous gas. There is no free intraperineal air. There is no drainable fluid collection. There is no free pelvic fluid. There is no identified abnormally enlarged lymph node in the abdomen or pelvis meeting CT size criteria for adenopathy. There is no identified acute bony abnormality. IMPRESSION: CT abdomen and pelvis: 1. No identified acute abnormality in the abdomen or pelvis. 2. There is swirling of the mesenteric vasculature, which is also present on prior CT on April 17, 2020. There is no evidence of intestinal obstruction or volvulus. No evidence of enteritis or colitis. Dictated by: Dictated on workstation # [id number]
[2021-11-26 20:28] LABS: CALCIUM 9.7 MG/DL (8.5-10.1)
[2021-11-26 20:29] LABS: GLUCOSE 101 MG/DL (70-105); TOTAL PROTEIN 7.3 GM/DL (6.4-8.2)
[2021-11-26 20:30] LABS: CARBON DIOXIDE 24 MMOL/L (21-32)
[2021-11-26 20:31] LABS: BILIRUBIN,TOTAL 0.3 MG/DL (0.1-1.0)
[2021-11-26 20:33] LABS: ALKALINE PHOSPHATASE 73 U/L (40-136); CREATININE SERUM 1.06 MG/DL (0.60-1.30); GFR ESTIMATED 93
[2021-11-26 20:34] LABS: BUN/CREATININE RATIO 14
[2021-11-26 20:36] LABS: ALANINE AMINOTRANSFERASE 74 U/L (0-55)
[2021-11-26] MEDS ORDERED: BISACODYL 10 MG SUPP (DULCOLAX) PR STA (20:48)
[2021-11-26] MEDS ORDERED: MAGNESIUM CITRATE 300 ML BTL PO STA (20:48)
[2021-11-26 21:05] VITALS: BP 128/76
== END 2021-11-26 21:04 | disposition home or self-care (01) ==
LOC: EDUNIT# 19:30 → ER 19:32
DX: K59.00 Constipation, unspecified (principal)
CPT/HCPCS: 36415; 74176; 80053; 85025; 86141